=== PATIENT | female | born 1965 | race Caucasian/White ===

== ENCOUNTER 2017-02-05 13:22 | Emergency (ER) | payer MEDICAID ==
[2017-02-05] MEDS ORDERED: Sodium Chloride 0.9% 1,000 ML IV ONE ×2 (15:17→18:32)
[2017-02-05] MEDS ORDERED: Belladonna-Phenobarbital PO STA (15:17)
[2017-02-05] MEDS ORDERED: Sodium Chloride 0.9% 1,000 ML ONE ×2 (15:28→18:39)
--- NOTE | 2017-02-05 15:33 | C.PDOC ---
Time Seen by Provider: 02/05/17 15:07 Chief Complaint (Nursing): Flu-like Symptoms History Per: Patient, Family Onset/Duration Of Symptoms: Hrs (since this morning) Current Symptoms Are (Timing): Still Present Associated Symptoms: Fever, Nausea, Vomiting, Diarrhea Severity: Moderate Recent travel outside of the [place]: No Additional History Per: Prior Records Past Medical History Reviewed: Historical Data, Nursing Documentation, Vital Signs Vital Signs: Last Vital Signs Temp 102.8 F H 02/05/17 19:31 Pulse 125 H 02/05/17 19:31 Resp 18 02/05/17 19:31 BP 100/64 02/05/17 19:31 Pulse Ox 97 02/05/17 19:31 - Medical History PMH: HTN Surgical History: Tonsillectomy Family History: States: Hypertension - Social History Hx Tobacco Use: No Hx Alcohol Use: No Hx Substance Use: No - Immunization History Hx Tetanus Toxoid Vaccination: Yes Hx Influenza Vaccination: No Hx Pneumococcal Vaccination: Yes Review Of Systems Except As Marked, All Systems Reviewed And Found Negative. Constitutional: Positive for: Fever, Malaise Cardiovascular: Negative for: Chest Pain Respiratory: Negative for: Shortness of Breath Gastrointestinal: Positive for: Nausea, Vomiting, Abdominal Pain, Diarrhea. Negative for: Melena, Hematochezia, Hematemesis Musculoskeletal: Negative for: Neck Pain Skin: Negative for: Rash Neurological: Positive for: Headache. Negative for: Weakness, Numbness, Seizures, Altered Mental Status Physical Exam - Physical Exam Appears: No Acute Distress Skin: Normal Color, Warm, Dry, No Rash Head: Atraumatic, Normacephalic Eye(s): bilateral: PERRL, EOMI Neck: Normal ROM, Supple Cardiovascular: Rhythm Regular Respiratory: Normal Breath Sounds, No Accessory Muscle Use Gastrointestinal/Abdominal: Soft, Tenderness (nonspecific), No Distention, No Guarding, No Rebound Extremity: Normal ROM Neurological/Psych: Oriented x3, Normal Motor, Normal Sensation ED Course And Treatment - Laboratory Results Result Diagrams: 02/05/17 15:42 02/05/17 15:42 Lab Interpretation: Abnormal Interpretation Of Abnormal: Leukocytosis Urine POC: Negative O2 Sat by Pulse Oximetry: 98 Pulse Ox Interpretation: Normal Disposition - Disposition Disposition Time: 19:57 Condition: FAIR - Clinical Impression Clinical Impression: Abdominal pain, Leukocytosis Physician Patient Turnover Patient Signed Over To: Luiz,Dru Handoff Comments: to f/up CT scan
[2017-02-05] MEDS ORDERED: Belladonna-Phenobarbital ONE (15:39)
[2017-02-05 15:47] LABS: BASO % 0.2 % (0.0-2.0); HEMATOCRIT 37.8 % (34.0-47.0); LYMPH # 0.6 K/uL (1.0-4.3); LYMPH % 3.1 % (20.0-40.0); MEAN CELL VOLUME 75.6 fL (81.0-99.0); MEAN PLATELET VOLUME 8.8 fL (7.2-11.7); MONO # 0.8 K/uL (0.0-0.8); MONO % 3.8 % (0.0-10.0); PLATELET COUNT 293 K/uL (130-400); RED CELL DISTRIBUTION WIDTH 13.6 % (11.5-14.5)
[2017-02-05 15:55] LABS: WHITE BLOOD COUNT 20.6 K/uL (4.8-10.8)
[2017-02-05 15:57] LABS: CHLORIDE 97 mmol/L (98-107); POTASSIUM 3.4 mmol/L (3.6-5.2); SODIUM 135 mmol/L (132-148)
[2017-02-05 15:59] LABS: ALB/GLOB RATIO 1.5 (1.0-2.1); ALKALINE PHOSPHATASE 119 U/L (38-126); AST/SGOT 33 U/L (14-36); BLOOD UREA NITROGEN 9 mg/dL (7-17); CARBON DIOXIDE 24 mmol/L (22-30); GFR AFRICAN-AMERICAN > 60
[2017-02-05 16:00] LABS: ALT/SGPT 52 U/L (9-52); CALCIUM 9.2 mg/dl (8.6-10.4); GLUCOSE,RANDOM 102 mg/dL (65-105)
[2017-02-05 18:27] LABS: RBC URINE 13 /hpf (0-3); URINE BACTERIA OCC (<OCC); URINE BILIRUBIN NEGATIVE (NEGATIVE); URINE BLOOD 1+ (NEGATIVE); URINE COLOR Yellow (YELLOW); URINE GLUCOSE (UA) NORMAL (Normal); URINE KETONE NEGATIVE (NEGATIVE); URINE LEUKOCYTE ESTERASE NEG Leu/uL (Negative); URINE PROTEIN NEGATIVE (NEGATIVE); URINE UROBILINOGEN NORMAL mg/dL (0.2-1.0); WBC URINE 1 /hpf (0-5)
[2017-02-05] MEDS ORDERED: Iohexol 300 100 ML IJ ONE (18:52)
[2017-02-05 19:33] VITALS: RESP 18
--- NOTE | 2017-02-05 20:54 | CT ---
EXAM: CT Abdomen and Pelvis With Intravenous Contrast CLINICAL HISTORY: 51 years old, female; Pain; Abdominal pain; Epigastric; Additional info: Abdominal pain. Leukocytosis. TECHNIQUE: Axial computed tomography images of the abdomen and pelvis with intravenous contrast. This CT exam was performed using one or more of the following dose reduction techniques: automated exposure control, adjustment of the mA and/or kV according to patient size, and/or use of iterative reconstruction technique. Coronal and sagittal reformatted images were created and reviewed. CONTRAST: 100 mL of omni administered intravenously. EXAM DATE/TIME: Exam ordered 02/05/2017 6:30 PM COMPARISON: No relevant prior studies available. FINDINGS: Lower thorax: No acute findings. ABDOMEN: Liver: Unremarkable. No mass. Gallbladder and bile ducts: Unremarkable. No calcified stones. No ductal dilation. Pancreas: Unremarkable. No mass. No ductal dilation. Spleen: Unremarkable. No splenomegaly. Adrenals: Unremarkable. No mass. Kidneys and ureters: Unremarkable. No solid mass. No hydronephrosis. Stomach and bowel: Unremarkable. No obstruction. No mucosal thickening. Appendix: No findings to suggest acute appendicitis. PELVIS: Bladder: Unremarkable. No mass. Reproductive: The uterus is not seen as a separate structure. ABDOMEN and PELVIS: Intraperitoneal space: Unremarkable. No free air. No significant fluid collection. Bones/joints: No acute fracture. No dislocation. Soft tissues: There is A small umbilical hernia containing fat. Hazy changes noted with any fat at the root of the mesentery particularly at the origin of the celiac axis and superior mesenteric arteries. The Vasculature: Unremarkable. No abdominal aortic aneurysm. Lymph nodes: The several subcentimeter lymph nodes are noted at the base of the cecum. There is is no stranding of the pericecal fat. No mucosal thickening is seen. IMPRESSION: 1. Subcentimeter lymph nodes noted at the base of the cecum. No pericecal inflammatory changes. No wall thickening. Mesenteric adenitis is a moderate diagnostic considerations. 2. Small umbilical hernia containing fat. No findings to suggest angulation. 3. Hazy changes noted within the retroperitoneal fat at the level of the origin of the celiac axis and superior mesenteric artery. Adenitis, pancreatitis are among the diagnostic considerations. Images were attached to this report and are available at [email or web address]
[2017-02-05 21:12] VITALS: BP 94/60; PULSE 106; TEMP 98; O2SAT 97
[2017-02-05 22:11] LABS: LARGE PLATELETS PRESENT; NEUTROPHIL 83 % (50-75); REACTIVE LYMPHOCYTES 1 % (0-0); SMUDGE CELLS PRESENT; TOTAL CELLS COUNTED 100
== END 2017-02-05 21:17 | disposition home or self-care (01) ==
LOC: C.ER 13:22
DX: R10.9 Unspecified abdominal pain (principal); D72.829 Elevated white blood cell count, unspecified
CPT/HCPCS: 74177; 80053; 81001; 83690; 84703; 85025; 87086; 87181; 87804; 96361; 96374; 96375; 99285; J1885; J2405; J7040; Q9967

== ENCOUNTER 2017-07-26 17:59 | Emergency (ER) | payer MEDICAID ==
[2017-07-26 18:19] VITALS: O2SAT 100
--- NOTE | 2017-07-26 19:27 | C.PDOC ---
History Of Present Illness The patient presents to the ED for evaluation of nausea, vomiting, diarrhea and abdominal pain which began this morning. Patient states she ate restaurant food last night. She reports decreased PO intake and denies fever, chills. Time Seen by Provider: 07/26/17 19:26 Chief Complaint (Nursing): Abdominal Pain History Per: Patient History/Exam Limitations: no limitations Onset/Duration Of Symptoms: Hrs Current Symptoms Are (Timing): Still Present Context: Food Severity: Mild Pain Scale Rating Of: 2 Location Of Pain/Discomfort: Diffuse Radiation Of Pain To:: None Quality Of Discomfort: Dull, Cramping, "Pain" Associated Symptoms: Nausea, Vomiting, Diarrhea. denies: Fever, Chills Exacerbating Factors: Food Alleviating Factors: None Last Bowel Movement: Today Recent travel outside of the [place]: No Additional History Per: Patient Abnormal Vaginal Bleeding: No Past Medical History Reviewed: Historical Data, Nursing Documentation, Vital Signs Vital Signs: Last Vital Signs Temp 98.6 F 07/26/17 20:27 Pulse 102 H 07/26/17 20:27 Resp 18 07/26/17 20:27 BP 116/76 07/26/17 20:27 Pulse Ox 100 07/26/17 20:27 - Medical History PMH: HTN Surgical History: Tonsillectomy Family History: States: Hypertension - Social History Hx Tobacco Use: No Hx Alcohol Use: No Hx Substance Use: No - Immunization History Hx Tetanus Toxoid Vaccination: Yes Hx Influenza Vaccination: No Hx Pneumococcal Vaccination: Yes Review Of Systems Constitutional: Negative for: Fever, Chills Cardiovascular: Negative for: Chest Pain, Palpitations Respiratory: Negative for: Cough, Shortness of Breath Gastrointestinal: Positive for: Nausea, Vomiting, Abdominal Pain (diffuse ), Diarrhea Genitourinary: Negative for: Dysuria, Frequency, Hematuria Skin: Negative for: Rash, Lesions Physical Exam - Physical Exam Appears: Non-toxic, No Acute Distress Skin: Warm, Dry Oral Mucosa: Moist Neck: Supple Chest: Symmetrical, No Deformity, No Tenderness Cardiovascular: Rhythm Regular, No Murmur Respiratory: Normal Breath Sounds, No Rales, No Rhonchi, No Wheezing Gastrointestinal/Abdominal: Soft, Tenderness (mild, diffuse ), No Guarding, No Rebound, Other (tympanic to percussion ) Extremity: Normal ROM, Capillary Refill (less than 2 seconds ) Neurological/Psych: Oriented x3 Gait: Steady ED Course And Treatment - Laboratory Results Result Diagrams: 07/26/17 19:43 07/26/17 19:43 O2 Sat by Pulse Oximetry: 100 (on RA) Pulse Ox Interpretation: Normal Progress Note: Bloodwork, Urinalysis ordered and reviewed. Pepcid IVP, Zofran IVP, and Lactated Ringers Solution IV administered. Disposition Counseled Patient/Family Regarding: Studies Performed, Diagnosis, Need For Followup, Rx Given - Disposition Referrals: [facility] [Outside] [facility] [Outside] Disposition: HOME/ ROUTINE Disposition Time: 19:27 Condition: FAIR Additional Instructions: Please return if symptoms recur.Also use K[employer]pect[employer] for the diarrhea Prescriptions: Ondansetron ODT [Zofran ODT] 1 odt PO BID PRN #6 odt PRN Reason: Nausea/Vomiting Instructions: Food Poisoning (ED), Acute Nausea and Vomiting (ED), Acute Diarrhea (ED) Forms: [facility] (Czech), Work Excuse - Clinical Impression Clinical Impression: Diarrhea, Abdominal pain, Nausea & vomiting - Scribe Statement The provider has reviewed the documentation as recorded by the Scribe (Jenn Greer) Provider Attestation: All medical record entries made by the Scribe were at my direction and personally dictated by me. I have reviewed the chart and agree that the record accurately reflects my personal performance of the history, physical exam, medical decision making, and the department course for this patient. I have also personally directed, reviewed, and agree with the discharge instructions and disposition.
[2017-07-26] MEDS ORDERED: Lactated Ringer's 1,000 ML IV STA (19:31)
[2017-07-26 19:47] LABS: BASO % 0.2 % (0.0-2.0); HEMATOCRIT 39.6 % (34.0-47.0); LYMPH # 0.9 K/uL (1.0-4.3); LYMPH % 8.8 % (20.0-40.0); MEAN CELL VOLUME 76.6 fL (81.0-99.0); MEAN CORPUSCULAR HEMOGLOBIN 25.4 pg (27.0-31.0); MEAN CORPUSCULAR HGB CONC 33.2 g/dL (33.0-37.0); MONO # 0.8 K/uL (0.0-0.8); MONO % 7.3 % (0.0-10.0); PLATELET COUNT 292 K/uL (130-400); RED CELL DISTRIBUTION WIDTH 13.2 % (11.5-14.5); WHITE BLOOD COUNT 10.3 K/uL (4.8-10.8)
[2017-07-26] MEDS ORDERED: Lactated Ringer's 1,000 ML ONE (19:49)
[2017-07-26 20:02] LABS: ALB/GLOB RATIO 1.3 (1.0-2.1); ALKALINE PHOSPHATASE 97 U/L (38-126); ALT/SGPT 60 U/L (9-52); AST/SGOT 31 U/L (14-36); BILIRUBIN,TOTAL 0.6 mg/dL (0.2-1.3); BLOOD UREA NITROGEN 7 mg/dL (7-17); CALCIUM 8.4 mg/dl (8.6-10.4); CARBON DIOXIDE 30 mmol/L (22-30); CHLORIDE 97 mmol/L (98-107); GFR AFRICAN-AMERICAN > 60; GLUCOSE,RANDOM 96 mg/dL (65-105); POTASSIUM 3.4 mmol/L (3.6-5.2); SODIUM 136 mmol/L (132-148); TOTAL PROTEIN 7.4 g/dL (6.3-8.3)
[2017-07-26 20:03] LABS: RBC URINE < 1 /hpf (0-3); URINE BACTERIA OCC (<OCC); URINE BILIRUBIN NEGATIVE (NEGATIVE); URINE BLOOD 2+ (NEGATIVE); URINE COLOR Colorless (YELLOW); URINE GLUCOSE (UA) NORMAL (Normal); URINE KETONE NEGATIVE (NEGATIVE); URINE LEUKOCYTE ESTERASE TRACE Leu/uL (Negative); URINE PROTEIN NEGATIVE (NEGATIVE); URINE UROBILINOGEN NORMAL mg/dL (0.2-1.0); WBC URINE 1 /hpf (0-5)
[2017-07-26 20:55] LABS: NEUTROPHIL 91 % (50-75); TOTAL CELLS COUNTED 100
[2017-07-26 21:22] VITALS: BP 110/72; PULSE 100; RESP 16; TEMP 98.2
== END 2017-07-26 21:31 | disposition home or self-care (01) ==
LOC: C.ER 17:59
DX: R11.2 Nausea with vomiting, unspecified (principal); R19.7 Diarrhea, unspecified; R10.9 Unspecified abdominal pain
CPT/HCPCS: 80053; 81001; 83690; 85025; 96361; 96374; 96375; 99284; J2405; J7120